=== PATIENT | female | born 1985 | race Caucasian/White ===

== ENCOUNTER 2016-12-27 11:22 | Emergency (ER) | payer MEDICAID ==
[~2016-12-27] VITALS: Wt 78.0 kg
[~2016-12-27 11:22] MED LIST: CEPH-443 PO; CETI-240 PO; NAPH15DR OP; PHEN-538 PO; POLY10DR19 BOTH EYES; ZOF8 PO
--- NOTE | 2016-12-27 12:19 | ERD ---
ER Documentation Chief Complaint Date/Time DATE: 12/27/16 TIME: 12:16 Chief Complaint 10 weeks , was told at the clinic no hb on fetus, wants us HPI 31-year-old female who states that she is about 10 weeks was sent here by her OB clinic. Patient stated that she had ultrasound done at the clinic 2 days ago, was told that they can no longer detect any heart tones. Patient reports suprapubic pelvic pain for last 3 days, but denies any vaginal bleeding or spotting. Denies fever chills. Denies dysuria. According to the patient, her LMP was 09/08/2016. Patient is SAB 1. ROS All systems reviewed and are negative except as per history of present illness. Medications Home Meds Active Scripts Acetaminophen* (Tylophen*) 500 Mg Capsule, 1 CAP PO Q6H Y for PAIN AND OR ELEVATED TEMP, #20 CAP Prov:PREMA SMITH NP 12/27/16 Cetirizine Hcl* (Cetirizine Hcl*) 10 Mg Tablet, 10 MG PO DAILY, #20 TAB Prov:ANDREIA BOJORQUEZ MD 05/05/16 Naphazoline Hcl/Phenir Mal (Naphcon-A Eye Drops) 15 Ml Drops, 2 DROP OP QID for 7 Days, BOTTLE Prov:ANDREIA BOJORQUEZ MD 05/05/16 Polymyxin B Sulfate-TMP* (Polymyxin B-TMP Eye Drops*) 10 Ml Drops, 1 DROP BOTH EYES QID for 7 Days, EA Prov:ANDREIA BOJORQUEZ MD 05/05/16 Phenazopyridine Hcl* (Pyridium*) 200 Mg Tab, 200 MG PO TID Y for URINARY PAIN, # 6 TAB Prov:ANDREIA BOJORQUEZ MD 04/22/16 Cephalexin* (Keflex*) 500 Mg Capsule, 500 MG PO QID for 5 Days, CAP Prov:ANDREIA BOJORQUEZ MD 04/22/16 Ondansetron Hcl* (Zofran* ODT) 8 mg -ODT Tab.disper, 8 MG PO Q6 Y for NAUSEA AND /OR VOMITING, #10 TAB Prov:MARCUS FELIZ NP 10/13/15 Allergies Allergies: Coded Allergies: aspirin (Verified Allergy, Intermediate, RASH, 05/05/16) PMhx/Soc History of Surgery: No Anesthesia Reaction: No Hx Neurological Disorder: No Hx Respiratory Disorders: Yes (ASTHMA) Hx Cardiac Disorders: No Hx Psychiatric Problems: No Hx Miscellaneous Medical Probl: No Hx Alcohol Use: No Hx Substance Use: No Hx Tobacco Use: No Physical Exam Vitals Vital Signs Date Time Temp Pulse Resp B/P Pulse Ox O2 Delivery O2 Flow Rate FiO2 12/27/16 11:23 98.6 95 18 113/63 99 Physical Exam General: Well-developed, well-nourished, conscious and coherent, in no distress Skin: Warm and dry without rash, good texture and turgor Head: Normocephalic without evidence of trauma Eyes: Sclera and conjunctivae normal; pupils equal, round, and reactive to light; extraocular movements are intact Neck: Supple without meningismus or adenopathy. Carotids are equal. Trachea midline. No bruits or JVD Chest: Normal AP diameter, good expansion without retractions. Nontender. Lungs are clear to auscultate bilaterally with good tidal volume Heart: Regular rate and rhythm. No murmur, rub, or gallop heard Abdomen: Soft and nontender without masses, guarding, or rebound. Bowel sounds are active. No hepatosplenomegaly Back: Without spinal or CVA tenderness Pelvis: Mild suprapubic tenderness Neuro: Alert and oriented. Mental status normal, speech clear. Cranial nerves grossly intact Result Diagram: 12/27/16 1225 Results 24 hrs Laboratory Tests Test 12/27/16 12:25 White Blood Count 10.510^3/ul Red Blood Count 4.7810^6/ul Hemoglobin 14.1g/dl Hematocrit 42.2% Mean Corpuscular Volume 88.3fl Mean Corpuscular Hemoglobin 29.5pg Mean Corpuscular Hemoglobin Concent 33.4g/dl Red Cell Distribution Width 12.6% Platelet Count 46897^3/UL Mean Platelet Volume 9.4fl Neutrophils % 63.7% Lymphocytes % 23.2% Monocytes % 6.4% Eosinophils % 5.7% Basophils % 0.7% Nucleated Red Blood Cells % 0.0/100WBC Neutrophils # 6.710^3/ul Lymphocytes # 2.410^3/ul Monocytes # 0.710^3/ul Eosinophils # 0.610^3/ul Basophils # 0.110^3/ul Nucleated Red Blood Cells # 0.010^3/ul Urine Color LT. YELLOW Urine Clarity CLEAR Urine pH 6.0 Urine Specific [place] 1.020 Urine Ketones 15 Urine Nitrite NEGATIVE Urine Bilirubin NEGATIVE Urine Urobilinogen 0.2 E.U./dL Urine Leukocyte Esterase NEGATIVE Urine Hemoglobin NEGATIVE Urine Glucose NEGATIVE% Urine Total Protein NEGATIVE Beta HCG, Quantitative 7551.2mIU/ml PROCEDURE: OB Ultrasound. CLINICAL INDICATION: Positive test. Pelvic pain. TECHNIQUE: Ultrasound of the pelvis was performed with transabdominal sonography in the axial and sagittal planes. COMPARISON: No prior study is available for comparison. FINDINGS: There is a single intrauterine gestational sac. pole and yolk sac are present. There is no heart motion. This indicates demise. [place]-rump length is 1.43 cm. Mean sac diameter is 3.23 cm. Menstrual age by ultrasound dates is 8 weeks 0 days. The right ovary appears normal measuring 2.3 x 1.2 x 2.0 cm. The left ovary appears normal measuring 3.0 x 1.2 x 1.8 cm. Color Doppler and pulsed Doppler sonography demonstrate normal flow to the ovaries. There is no other pelvic mass or free fluid. IMPRESSION: 1. demise 8 weeks 0 days menstrual age by ultrasound dates. RPTAT: QQ .Andreia Bragg MD, MD Date Time Electronically viewed and signed by .Andreia Bragg MD, on 12/27/2016 13:01 .R/ CC: PREMA SMITH DRIVE IN TELLER Procedures/MDM ED course: CBC: Unremarkable Beta hC.2 UA: No evidence of urinary tract infection Type & RH: O+ OB US: demise 8 weeks 0 days by ultrasound date Medical Decision Making: Well-appearing 31-year-old female who is approximately 10 weeks presented ED with pelvic pain. OB ultrasound done in the clinic 2 days ago showed lack of heart activities. Repeat ultrasound today again lack of heart activity, indicating demise. Her beta hCG quant today is 7751 , significantly lower than expected for 10 weeks gestational age. Again, suggestive of demise. Patient is advised of the laboratory and imaging findings. Educated patient to expect vaginal bleeding, possibly heavy, in the next few days. If patient does not show any sign of spontaneous in the next few days, advised patient to follow-up with her OB for possible D&C. Patient appears well, stable for discharge and outpatient management. Medical decision making shared with patient and family. Education provided to patient and family. Patient and family expressed understanding of the plan. Medications on discharge: Tylenol. Follow-up: Primary care provider in 2-3 days or return to ED if worse. PREMA SMITH NP December 27, 2016 12:19
[2016-12-27 12:28] LABS: ADD SCAN DIFF NO
[2016-12-27 12:32] LABS: BASOPHIL # 0.1 10^3/ul (0.0-0.1); BASOPHILS % 0.7 % (0.0-2.0); EOSINOPHILS # 0.6 10^3/ul (0.0-0.5); EOSINOPHILS % 5.7 % (0.0-7.0); HEMATOCRIT 42.2 % (37.0-47.0); HEMOGLOBIN 14.1 g/dl (12.0-16.0); LYMPHOCYTES # 2.4 10^3/ul (0.8-2.9); LYMPHOCYTES % 23.2 % (15.0-51.0); MEAN CORPUSCULAR HEMOGLOBIN 29.5 pg (29.0-33.0); MEAN CORPUSCULAR HGB CONC 33.4 g/dl (32.0-37.0); MEAN CORPUSCULAR VOLUME 88.3 fl (82.0-101.0); MEAN PLATELET VOLUME 9.4 fl (7.4-10.4); MONOCYTE # 0.7 10^3/ul (0.3-0.9); MONOCYTES % 6.4 % (0.0-11.0); NEUTROPHIL # 6.7 10^3/ul (1.6-7.5); NEUTROPHILS % 63.7 % (39.0-77.0); PLATELET COUNT 299 10^3/UL (140-415); RED BLOOD COUNT 4.78 10^6/ul (4.20-5.40); RED CELL DISTRIBUTION WIDTH 12.6 % (11.5-14.5); WHITE BLOOD COUNT 10.5 10^3/ul (4.8-10.8)
[2016-12-27 12:52] LABS: ADD UMIC NO; URINE BILIRUBIN (Dip) NEGATIVE (NEGATIVE); URINE BLOOD (Dip) NEGATIVE (NEGATIVE); URINE COLOR LT. YELLOW (YELLOW); URINE GLUCOSE (Dip) NEGATIVE (NEGATIVE); URINE KETONES (Dip) 15 (NEGATIVE); URINE LEUKOCYTE ESTERASE (Dip) NEGATIVE (NEGATIVE); URINE NITRITE (Dip) NEGATIVE (NEGATIVE); URINE TOTAL PROTEIN (Dip) NEGATIVE (NEGATIVE); URINE UROBILINOGEN (Dip) 0.2 E.U./dL (0.1-1.0)
--- NOTE | 2016-12-27 13:02 | RADRPT ---
PROCEDURE: OB Ultrasound. CLINICAL INDICATION: Positive test. Pelvic pain. TECHNIQUE: Ultrasound of the pelvis was performed with transabdominal sonography in the axial and sagittal planes. COMPARISON: No prior study is available for comparison. FINDINGS: There is a single intrauterine gestational sac. pole and yolk sac are present. There is no heart motion. This indicates demise. [place]-rump length is 1.43 cm. Mean sac diameter is 3.23 cm. Menstrual age by ultrasound dates is 8 weeks 0 days. The right ovary appears normal measuring 2.3 x 1.2 x 2.0 cm. The left ovary appears normal measuring 3.0 x 1.2 x 1.8 cm. Color Doppler and pulsed Doppler sonography demonstrate normal flow to the ovaries. There is no other pelvic mass or free fluid. IMPRESSION: 1. demise 8 weeks 0 days menstrual age by ultrasound dates. RPTAT: QQ .Dez Bragg MD, MD Date Time Electronically viewed and signed by .Dez Bragg MD, on 12/27/2016 13:01 .R/
[2016-12-27] MEDS ORDERED: ACET500C5 PO (13:50)
[2016-12-27 14:03] VITALS: BP 118/74; PULSE 76; RESP 18; TEMP 98.3
== END 2016-12-27 14:04 | disposition home or self-care (01) ==
LOC: FTE 11:22
DX: O26.891 Other specified pregnancy related conditions, first trimester (principal); O99.52 Diseases of the respiratory system complicating childbirth; J45.909 Unspecified asthma, uncomplicated; R10.2 Pelvic and perineal pain; Z3A.08 8 weeks gestation of pregnancy
CPT/HCPCS: 36415; 76801; 81003; 84702; 85025; 86900; 86901; Z7502

== ENCOUNTER 2017-03-31 13:48 | Emergency (ER) | payer MEDICAID ==
[~2017-03-31] VITALS: Ht 160 cm; Wt 66.0 kg
[~2017-03-31 13:48] MED LIST changes: +ACET500C5 PO
[2017-03-31 13:52] VITALS: Ht 160 cm; Wt 66.0 kg
[2017-03-31] MEDS ORDERED: ONDANSETRON (ODT) 4 MG TAB ODT STA (14:51)
[2017-03-31] MEDS ORDERED: HYDROCODONE/APAP (5/325) TAB PO ONE (15:00)
--- NOTE | 2017-03-31 15:08 | ERD ---
ER Documentation Chief Complaint Date/Time DATE: 03/31/17 TIME: 15:06 Chief Complaint pelvic pain x 1 day HPI This is a 31-year-old female who presents the emergency department today for vaginal bleeding and lower abdominal pain since she had a miscarriage. Patient states had a miscarriage in December. States she feels dizzy and has had her periods every 2 weeks since that time. States that she gets pain when she has her menstrual cycle. She does have some nausea. Patient states she is currently on her menstrual cycle. Denies any fevers or chills, dysuria ROS All systems reviewed and are negative except as per history of present illness. Medications Home Meds Active Scripts Acetaminophen* (Tylophen*) 500 Mg Capsule, 1 CAP PO Q6H Y for PAIN AND OR ELEVATED TEMP, #30 CAP Prov:FLYNN RICCI PA-C 03/31/17 Naproxen* (Naprosyn*) 500 Mg Tablet, 500 MG PO BID Y for PAIN AND/OR INFLAMMATION, #30 TAB Prov:FLYNN RICCI PA-C 03/31/17 Acetaminophen* (Tylophen*) 500 Mg Capsule, 1 CAP PO Q6H Y for PAIN AND OR ELEVATED TEMP, #20 CAP Prov:PREMA SMITH NP 12/27/16 Cetirizine Hcl* (Cetirizine Hcl*) 10 Mg Tablet, 10 MG PO DAILY, #20 TAB Prov:ANDREIA BOJORQUEZ MD 05/05/16 Naphazoline Hcl/Phenir Mal (Naphcon-A Eye Drops) 15 Ml Drops, 2 DROP OP QID for 7 Days, BOTTLE Prov:ANDREIA BOJORQUEZ MD 05/05/16 Polymyxin B Sulfate-TMP* (Polymyxin B-TMP Eye Drops*) 10 Ml Drops, 1 DROP BOTH EYES QID for 7 Days, EA Prov:ANDREIA BOJORQUEZ MD 05/05/16 Phenazopyridine Hcl* (Pyridium*) 200 Mg Tab, 200 MG PO TID Y for URINARY PAIN, # 6 TAB Prov:ANDREIA BOJORQUEZ MD 04/22/16 Cephalexin* (Keflex*) 500 Mg Capsule, 500 MG PO QID for 5 Days, CAP Prov:ANDREIA BOJORQUEZ MD 04/22/16 Ondansetron Hcl* (Zofran* ODT) 8 mg -ODT Tab.disper, 8 MG PO Q6 Y for NAUSEA AND /OR VOMITING, #10 TAB Prov:MARCUS FELIZ BONDING EQUIPMENT OPERATOR 10/13/15 Allergies Allergies: Coded Allergies: aspirin (Verified Allergy, Intermediate, RASH, 03/31/17) PMhx/Soc History of Surgery: No Anesthesia Reaction: No Hx Neurological Disorder: No Hx Respiratory Disorders: Yes (ASTHMA) Hx Cardiac Disorders: No Hx Psychiatric Problems: No Hx Miscellaneous Medical Probl: No Hx Alcohol Use: No Hx Substance Use: No Hx Tobacco Use: No Smoking Status: Never smoker Physical Exam Vitals Vital Signs Date Time Temp Pulse Resp B/P Pulse Ox O2 Delivery O2 Flow Rate FiO2 03/31/17 13:52 98.9 83 18/116 74 Physical Exam Const: No acute distress Head: Atraumatic Eyes: Normal Conjunctiva ENT: Normal External Ears, Nose and Mouth. Neck: Full range of motion..~ No meningismus. Resp: Clear to auscultation bilaterally Cardio: Regular rate and rhythm, no murmurs Abd: Soft, pelvic tenderness non distended. Normal bowel sounds. No specific tenderness McBurney's. Skin: No petechiae or rashes Back: No midline or flank tenderness Ext: No cyanosis, or edema Neur: Awake and alert Psych: Normal Mood and Affect Result Diagram: 03/31/17 1505 03/31/17 1505 Results 24 hrs Laboratory Tests Test 03/31/17 15:05 03/31/17 15:21 White Blood Count 10.210^3/ul Red Blood Count 4.6010^6/ul Hemoglobin 13.9g/dl Hematocrit 40.4% Mean Corpuscular Volume 87.8fl Mean Corpuscular Hemoglobin 30.2pg Mean Corpuscular Hemoglobin Concent 34.4g/dl Red Cell Distribution Width 12.3% Platelet Count 66094^3/UL Mean Platelet Volume 9.9fl Neutrophils % 52.8% Lymphocytes % 30.8% Monocytes % 8.3% Eosinophils % 6.8% Basophils % 0.9% Nucleated Red Blood Cells % 0.0/100WBC Neutrophils # 5.410^3/ul Lymphocytes # 3.110^3/ul Monocytes # 0.910^3/ul Eosinophils # 0.710^3/ul Basophils # 0.110^3/ul Nucleated Red Blood Cells # 0.010^3/ul Sodium Level 143mmol/L Potassium Level 3.9mmol/L Chloride Level 101mmol/L Carbon Dioxide Level 28mmol/L Anion Gap 18 Blood Urea Nitrogen 12mg/dl Creatinine 0.69mg/dl Glucose Level 84mg/dl Calcium Level 9.2mg/dl Total Bilirubin 0.3mg/dl Direct Bilirubin 0.00mg/dl Indirect Bilirubin 0.3mg/dl Aspartate Amino Transf (AST/SGOT) 16IU/L Alanine Aminotransferase (ALT/SGPT) 33IU/L Alkaline Phosphatase 64IU/L Total Protein 7.7g/dl Albumin 4.5g/dl Globulin 3.20g/dl Albumin/Globulin Ratio 1.40 Bedside Urine pH (LAB) 8.5 Bedside Urine Protein (LAB) 1+ Bedside Urine Glucose (UA) Negative Bedside Urine Ketones (LAB) Negative Bedside Urine Blood 2+ Bedside Urine Nitrite (LAB) Negative Bedside Urine Leukocyte Esterase (L Negative Current Medications Medications (Trade) Dose Ordered Sig/Margarito Route PRN Reason Start Time Stop Time Status Last Admin Dose Admin Acetaminophen/ Hydrocodone Bitart (Mosinee (5/325)) 1 tab ONCE ONCE PO 03/31/17 15:00 03/31/17 15:01 DC 03/31/17 14:58 Ondansetron HCl (Zofran Odt) 4 mg ONCE STAT ODT 03/31/17 14:51 03/31/17 14:54 DC 03/31/17 14:59 DIAGNOSTIC IMAGING REPORT Patient: KE CISNEROS : 1985 Age: 31 Sex: F MR #: [id number] DOS: 03/31/17 0000 Ordering MD: FLYNN RICCI PA-C Location: [facility] Room/Bed: PROCEDURE: US Pelvis. CLINICAL INDICATION: Abnormal vaginal bleeding. TECHNIQUE: The pelvis was evaluated with transabdominal and transvaginal sonography in the axial and sagittal planes. COMPARISON: OB ultrasound dated 12/27/2016 which demonstrated demise at 8 weeks gestational age. FINDINGS: Uterus: 9.1 x 4.2 x 5.9 cm. Endometrium: 4.8 mm. Right ovary: 3.6 x 2.0 x 2.6 cm. Left ovary: 3.4 x 1.4 x 1.9 cm. Uterine masses: None. Ovarian masses: None. Color Doppler and pulsed Doppler sonography demonstrate normal flow to the ovaries. Other pelvic masses: None. Free fluid: None. IMPRESSION: 1. Normal pelvic ultrasound. 2. If the patient has a positive test, ectopic gestation cannot be excluded. RPTAT: QQ .Andreia Bragg MD, MD Date Time Electronically viewed and signed by .Andreia Bragg MD, MD on 03/31/2017 16:02 .R/ CC: FLYNN RICCI PA-C Procedures/MDM This is a 31-year-old female who presents to the emergency department today complaining of pelvic pain, nausea and vaginal bleeding that has been intermittent since her miscarriage back in December. Upon review of patient's medical records patient was seen here in December for being sent by her primary doctor for no heart tones. Was confirmed at that time the patient had demise with no heart tones. Given patient's complaints I did obtain laboratory workup as well as imaging. Laboratory work shows no elevated white blood cell count. She is not anemic. Platelets are within normal limits. Electro lites are within normal limits. Glucose within normal limits. Liver enzymes are within normal limits. UA is negative for infection. 2+ blood. Urine test is negative Ultrasound shows a normal pelvic ultrasound. There is normal Doppler flow to both ovaries. There is no pelvic masses or free fluid. Symptoms at this time is consistent with pelvic pain of uncertain etiology and dysfunctional uterine bleeding. I have explained this to the patient. Low suspicion for ectopic , to ovarian abscess, ovarian torsion or retained products of conception. Patient has no tenderness McBurney's and have low suspicion for acute surgical abdomen. She was given [place] and Zofran here in the emergency department and pain improved. Patient given a prescription for Naprosyn and Tylenol for home as well as Zofran. Instructed to follow-up with her primary care doctor [facility]. Patient understood. At this time the patient is stable for discharge and outpatient management. Patient should follow up with their PCP in the next 1-2 days. They may return to the emergency department sooner for any persistent or worsening of symptoms. Patient understood and agreed with the plan. Departure Diagnosis: Primary Impression: Dysfunctional uterine bleeding Additional Impression: Pelvic pain Condition: FLYNN Denise PA-C Mar 31, 2017 15:08
[2017-03-31 15:14] LABS: URINE BLOOD (Dip) POC 2+ (NEGATIVE)
[2017-03-31 15:22] LABS: BASOPHIL # 0.1 10^3/ul (0.0-0.1); BASOPHILS % 0.9 % (0.0-2.0); EOSINOPHILS # 0.7 10^3/ul (0.0-0.5); EOSINOPHILS % 6.8 % (0.0-7.0); HEMATOCRIT 40.4 % (37.0-47.0); HEMOGLOBIN 13.9 g/dl (12.0-16.0); LYMPHOCYTES # 3.1 10^3/ul (0.8-2.9); LYMPHOCYTES % 30.8 % (15.0-51.0); MEAN CORPUSCULAR HEMOGLOBIN 30.2 pg (29.0-33.0); MEAN CORPUSCULAR HGB CONC 34.4 g/dl (32.0-37.0); MEAN CORPUSCULAR VOLUME 87.8 fl (82.0-101.0); MEAN PLATELET VOLUME 9.9 fl (7.4-10.4); MONOCYTE # 0.9 10^3/ul (0.3-0.9); MONOCYTES % 8.3 % (0.0-11.0); NEUTROPHIL # 5.4 10^3/ul (1.6-7.5); NEUTROPHILS % 52.8 % (39.0-77.0); PLATELET COUNT 314 10^3/UL (140-415); RED CELL DISTRIBUTION WIDTH 12.3 % (11.5-14.5); WHITE BLOOD COUNT 10.2 10^3/ul (4.8-10.8)
[2017-03-31 15:38] LABS: ALBUMIN 4.5 g/dl (3.3-4.9); ALBUMIN/GLOBULIN RATIO 1.4; BILIRUBIN,INDIRECT 0.3 mg/dl (0-1.1); BILIRUBIN,TOTAL 0.3 mg/dl (0.2-1.3); CALCIUM 9.2 mg/dl (8.4-10.2); CREATININE 0.69 mg/dl (0.44-1.00); POTASSIUM 3.9 mmol/L (3.5-5.1); TOTAL PROTEIN 7.7 g/dl (6.1-8.1)
--- NOTE | 2017-03-31 16:02 | RADRPT ---
PROCEDURE: US Pelvis. CLINICAL INDICATION: Abnormal vaginal bleeding. TECHNIQUE: The pelvis was evaluated with transabdominal and transvaginal sonography in the axial a nd sagittal planes. COMPARISON: OB ultrasound dated 12/27/2016 which demonstrated demise at 8 weeks gestational age. FINDINGS: Uterus: 9.1 x 4.2 x 5.9 cm. Endometrium: 4.8 mm. Right ovary: 3.6 x 2.0 x 2.6 cm. Left ovary: 3.4 x 1.4 x 1.9 cm. Uterine masses: None. Ovarian masses: None. Color Doppler and pulsed Doppler sonography demonstrate normal flow to the ova moe. Other pelvic masses: None. Free fluid: None. IMPRESSION: 1. Normal pelvic ultrasound. 2. If the patient has a positive test, ectopic gestation cannot be excluded. RPTAT: QQ .Dez Bragg MD, MD Date Time Electronically viewed and signed by .Dez Bragg MD, on 03/31/2017 16:02 .R/
[2017-03-31] MEDS ORDERED: NAPR-260 PO (16:13)
[2017-03-31] MEDS ORDERED: ACET500C5 PO (16:13)
== END 2017-03-31 16:33 | disposition home or self-care (01) ==
LOC: FTE 13:48
DX: N93.8 Other specified abnormal uterine and vaginal bleeding (principal); J45.909 Unspecified asthma, uncomplicated; R11.0 Nausea
CPT/HCPCS: 76830; 76856; 80053; 81003; 85025; Z7502; Z7610

== ENCOUNTER 2017-05-21 10:26 | Emergency (ER) | payer MEDICAID ==
[~2017-05-21] VITALS: Ht 160 cm; Wt 65.5 kg
[~2017-05-21 10:26] MED LIST changes: +NAPR-260 PO
[2017-05-21 10:31] VITALS: Ht 160 cm; Wt 65.5 kg
[2017-05-21] MEDS ORDERED: AZIT250T94 PO (11:54)
[2017-05-21] MEDS ORDERED: D-ME473S2 PO (11:54)
[2017-05-21] MEDS ORDERED: ALBU8.5H3 INH (11:54)
--- NOTE | 2017-05-21 14:21 | ERD ---
ER Documentation Chief Complaint Date/Time DATE: 05/21/17 TIME: 14:19 Chief Complaint sore throat and cough x 1 month with intermittent fever, +nausea and vomiti HPI A 11-year-old female complaining of sore throat and productive cough 1. Patient has had tactile fevers with nausea. States she has a history of respiratory airway disease. Denies antibiotics but has taken many over-the- counter medications with no alleviation. Denies hemoptysis. Denies shortness of breath or dyspnea on exertion. Denies sore throat. Denies runny nose. Denies ear pain. Denies headache. ROS All systems reviewed and are negative except as per history of present illness. Medications Home Meds Active Scripts Dextromethorphan Hb-Promethazine Hcl* (Promethazine DM* Syrup) 473 Ml Syrup, 5 ML PO Q6 Y for COUGH, #100 ML Prov:VISHAL ERVIN PA-C 05/21/17 Albuterol Sulfate* (Proair HFA*) 8.5 Gm Hfa.aer.ad, 2 PUFF INH Q4, #1 INHALER Prov:VISHAL ERVIN PA-C 05/21/17 Azithromycin* (Zithromax*) 250 Mg Tablet, 250 MG PO .ZPACK DIRECTED, #6 TAB TAKE 500 MG (2 TABS) THE FIRST DAY THEN 250 MG (1 TAB) DAYS 2-5 Prov:VISHAL ERVIN PA-C 05/21/17 Acetaminophen* (Tylophen*) 500 Mg Capsule, 1 CAP PO Q6H Y for PAIN AND OR ELEVATED TEMP, #30 CAP Prov:FLYNN RICCI PA-C 03/31/17 Naproxen* (Naprosyn*) 500 Mg Tablet, 500 MG PO BID Y for PAIN AND/OR INFLAMMATION, #30 TAB Prov:FLYNN RICCI PA-C 03/31/17 Acetaminophen* (Tylophen*) 500 Mg Capsule, 1 CAP PO Q6H Y for PAIN AND OR ELEVATED TEMP, #20 CAP Prov:PREMA SMITH NP 12/27/16 Cetirizine Hcl* (Cetirizine Hcl*) 10 Mg Tablet, 10 MG PO DAILY, #20 TAB Prov:ANDREIA BOJORQUEZ MD 05/05/16 Naphazoline Hcl/Phenir Mal (Naphcon-A Eye Drops) 15 Ml Drops, 2 DROP OP QID for 7 Days, BOTTLE Prov:ANDREIA BOJORQUEZ MD 05/05/16 Polymyxin B Sulfate-TMP* (Polymyxin B-TMP Eye Drops*) 10 Ml Drops, 1 DROP BOTH EYES QID for 7 Days, EA Prov:ANDREIA BOJORQUEZ MD 05/05/16 Phenazopyridine Hcl* (Pyridium*) 200 Mg Tab, 200 MG PO TID Y for URINARY PAIN, # 6 TAB Prov:ANDREIA BOJORQUEZ MD 04/22/16 Cephalexin* (Keflex*) 500 Mg Capsule, 500 MG PO QID for 5 Days, CAP Prov:ANDREIA BOJORQUEZ MD 04/22/16 Ondansetron Hcl* (Zofran* ODT) 8 mg -ODT Tab.disper, 8 MG PO Q6 Y for NAUSEA AND /OR VOMITING, #10 TAB Prov:MARCUS FELIZ NP 10/13/15 Allergies Allergies: Coded Allergies: aspirin (Verified Allergy, Intermediate, RASH, 03/31/17) PMhx/Soc History of Surgery: No Anesthesia Reaction: No Hx Neurological Disorder: No Hx Respiratory Disorders: Yes (ASTHMA) Hx Cardiac Disorders: No Hx Psychiatric Problems: No Hx Miscellaneous Medical Probl: No Hx Alcohol Use: No Hx Substance Use: No Hx Tobacco Use: No Physical Exam Vitals Vital Signs Date Time Temp Pulse Resp B/P Pulse Ox O2 Delivery O2 Flow Rate FiO2 05/21/17 10:31 98.2 98 18 119/74 97 Physical Exam GENERAL: The patient is well-appearing, well-nourished, in no acute distress HEENT: Atraumatic. Conjunctivae are pink. Pupils equal, round, and reactive to light. There is no scleral icterus. Tympanic membranes clear bilaterally. Oropharynx clear. No nystagmus or photophobia. NECK: C-spine is soft and supple. There is no meningismus. There is no cervical lymphadenopathy. No JVD. No bruits. No goiter. CHEST: Clear to auscultation bilaterally. There are no rales, wheezes or rhonchi. HEART: Regular rate and rhythm. No murmurs, clicks, rubs or gallops. No S3 or S4. Procedures/MDM MDM: 31-year-old female coming in complaining of cough 1 month. I have low suspicion for pneumonia. Patient's exam is non-concerning and vital signs are stable. I have low suspicion for respiratory distress or hypoxia. Patient's vital signs are stable and exam is not concerning. Given patient has had non- resolving cough for 1 month I will treat with antibiotics. Patient is recommended to follow-up with primary care within 1-2 days for close evaluation. Patient is given strict ER precautions. All questions answered at discharge. Departure Diagnosis: Primary Impression: Cough Condition: Stable Patient Instructions: Cough, Chronic, Uncertain Cause, (Adult) Referrals: [facility] YOU HAVE RECEIVED A MEDICAL SCREENING EXAM AND THE RESULTS INDICATE THAT YOU DO NOT HAVE A CONDITION THAT REQUIRES URGENT TREATMENT IN THE EMERGENCY DEPARTMENT. FURTHER EVALUATION AND TREATMENT OF YOUR CONDITION CAN WAIT UNTIL YOU ARE SEEN IN YOUR DOCTORS OFFICE WITHIN THE NEXT 1-2 DAYS. IT IS YOUR RESPONSIBILITY TO MAKE AN APPOINTMENT FOR FOLOW-UP CARE. IF YOU HAVE A PRIMARY DOCTOR --you should call your primary doctor and schedule an appointment IF YOU DO NOT HAVE A PRIMARY DOCTOR YOU CAN CALL OUR PHYSICIAN REFERRAL HOTLINE AT IF YOU CAN NOT AFFORD TO SEE A PHYSICIAN YOU CAN CHOSE FROM THE FOLLOWING [facility] [address] [facility]. [facility] [address] [address] [facility] [facility] [address] [facility] [address] [facility] [address] [facility]. [facility]. [address] Additional Instructions: FOLLOW UP WITH YOUR PRIMARY CARE PHYSICIAN TOMORROW.Return to this facility if you are not improving as expected. VISHAL ERVIN PA-C May 21, 2017 14:21
== END 2017-05-21 12:50 | disposition home or self-care (01) ==
LOC: FTE 10:26
DX: R05 Cough (principal); J45.909 Unspecified asthma, uncomplicated
CPT/HCPCS: 99284